=== PATIENT | male | born 1930 | race Caucasian/White ===

== ENCOUNTER 2018-04-08 15:41 | Emergency (ER) | payer MEDICARE ==
[~2018-04-08] VITALS: Ht 167.6 cm; Wt 72.6 kg
[~2018-04-08 15:41] MED LIST: CHLORTHALIDONE25 MG PO; CLONIDINE1 EAC1 TD; DIVALPROEX SOD500 MG PO; FINASTERIDE5 MG PO; LEVOTHYROXINE100 MCG PO; LIPITOR20 MG PO; LISINOPRIL10 MG PO; MAGNESIUM400 MG PO; MELATONIN3 M1 PO; METOPROLOL SUC200 MG PO; NORCO 5-325 TA1 EACH PO; VITAMIN C1000 M1 PO; VITAMIN E400 UNI1 PO
== END 2018-04-08 21:00 | disposition short-term general hospital (02) ==
LOC: ED 15:41
PROC: 0T9B70Z Drainage of Bladder with Drainage Device, Via Natural or Artificial Opening (ICD-10-PCS; principal; 2018-04-08)
DX: Z00.8 Encounter for other general examination (principal); I10 Essential (primary) hypertension; E03.9 Hypothyroidism, unspecified; Z79.899 Other long term (current) drug therapy
CPT/HCPCS: 36415; 51701; 80053; 80164; 80176; 81001; 82140; 84443; 85025; 96360; 96372; 99284; G0480; J3486; J7030

== ENCOUNTER 2019-08-04 12:16 | Emergency (ER) | payer MEDICARE, OTHER ==
[~2019-08-04] VITALS: Ht 167.6 cm; Wt 72.6 kg
== END 2019-08-11 13:45 | disposition home or self-care (01) ==
LOC: ED 12:16
DX: F31.9 Bipolar disorder, unspecified (principal); I10 Essential (primary) hypertension; E03.9 Hypothyroidism, unspecified; Z87.891 Personal history of nicotine dependence; Z79.899 Other long term (current) drug therapy
CPT/HCPCS: 80053; 80176; 81001; 84443; 85025; 99284; G0480

== ENCOUNTER 2020-07-23 01:08 | Inpatient (IN) | payer MEDICARE ==
[~2020-07-23] VITALS: Ht 167.6 cm; Wt 60.2 kg
--- NOTE | ~2020-07-23 | DS ---
[facility] [address] [place], [place] [address] Draft ADMISSION DATE: 07/23/2020 DISCHARGE DATE: 07/25/2020 REASON FOR ADMISSION: This 89-year-old white man lives at "[facility]" [facility] locally. 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 Estrada with lower abdominal pain, persistent nausea and vomiting. A CT scan was performed, which showed a small bowel obstruction and possible closed-loop obstruction. The patient had undergone open appendectomy at age 13 a number of years ago. He was admitted for further evaluation and care. PERTINENT PHYSICAL EXAMINATION: GENERAL: Showed a relatively thin white man, who was not in severe distress. CHEST: Clear. HEART: Regular without murmur. ABDOMEN: Nondistended, mildly tender in the mid abdomen. A nasogastric tube was draining enteric fluid. LABORATORY STUDIES: Showed a white count of 12.9, hematocrit 39.5. Chem profile is normal. The creatinine was elevated at 1.83. Urinalysis normal. COVID testing was performed, which was negative ultimately. HOSPITAL COURSE: He was fluid resuscitated, given broad-spectrum antibiotics and taken to operation for laparoscopy. The laparoscopy was found to have distended and markedly inflamed bowel loops consistent with bowel obstruction. It was not possible to fully identify the source of the obstruction itself and on that basis conversion to a mini-laparotomy using a circumumbilical incision. Laparoscopy did allow for general visualization of his rectal process to be in the right mid abdomen. With the ultra small mini-laparotomy, the obstructed area could be identified. It appeared to be an adhesion from prior appendectomy in his youth. The adhesion was divided and a closed-loop obstruction was relieved completely. The small bowel was explanted from the abdomen entirely showing it completely free of other problems. The inflammatory process appeared to zafar simply with relief of the obstructive band. The abdomen was copiously irrigated with saline solution and closed. Postoperatively, his nasogastric tube was removed within an hour or 2 of operation. He was begun on clear liquid diet, which he tolerated. He was advanced to regular diet, PATIENT NAME: RENEE JONES DISCHARGE SUMMARY DATE OF : 32 REPORT #: [id number] PHYSICIAN: STEPHANIE AGGARWAL MD PCP: VOLODYMYR MYLES MD REPORT IS CONFIDENTIAL AND NOT TO BE RELEASED WITHOUT AUTHORIZATION [facility] [address] [place] [id number] Draft which he ultimately tolerated well. He is discharged home in good condition having no problems currently. MEDICATIONS: Include: 1. Ibuprofen 600 mg p.o. q.6 hours as needed for pain, #30, refill 1. 2. Tylenol 1000 mg p.o. q.6 hours p.r.n. pain, #60. He will resume his usual medication includin. Finasteride 5 mg p.o. daily. 2. Synthroid 100 mcg p.o. daily. 3. Atorvastatin 20 mg p.o. daily. 4. Amlodipine 10 mg p.o. daily. 5. Vitamin B complex one p.o. daily. 6. Coenzyme Q 100 mg p.o. daily. 7. DSS 100 mg p.o. b.i.d. 8. Ferrous gluconate one tablet p.o. daily. 9. Lasix 40 mg p.o. daily. 10. Pantoprazole 40 mg p.o. daily. 11. MiraLAX 1 package daily as needed. FOLLOWUP PLANS: He will return to see me in approximately 4 weeks. He will return to the ongoing care of "[facility]." DISCHARGE DIAGNOSES: 1. Incomplete bowel obstruction related to closed-loop obstruction from adhesion from prior open appendectomy at age 13. 2. Laparoscopy and laparoscopic assisted adhesiolysis of obstructing band causing bowel obstruction July 23, 2020. 3. Hypertension. 4. Dyslipidemia. 5. Hypothyroidism. 6. Clinical reflux symptoms. Stephanie Aggarwal MD /MODL /[id number] PATIENT NAME: RENEE JONES DISCHARGE SUMMARY DATE OF : 32 REPORT #: [id number] PHYSICIAN: STEPHANIE AGGARWAL MD PCP: VOLODYMYR MYLES MD REPORT IS CONFIDENTIAL AND NOT TO BE RELEASED WITHOUT AUTHORIZATION [facility] [address] [place], [place] [address] Draft cc: Volodymyr Myles MD [facility] Copies: VOLODYMYR MYLES MD ~ PATIENT NAME: ROBERTRENEE DISCHARGE SUMMARY DATE OF : 32 REPORT #: [id number] PHYSICIAN: STEPHANIE AGGARWAL MD PCP: VOLODYMYR MYLES MD REPORT IS CONFIDENTIAL AND NOT TO BE RELEASED WITHOUT AUTHORIZATION
--- OUTSIDE RECORDS SUMMARY | 2020-07-23 01:10 | XMS ---
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 E.Amira VISIT COUNT (12 MO.) 8 [facility] 2 ARACELY Dominguez TOTAL 10 NOTE: Visits indicate total known visits. ED/UCC VISIT TRACKING (12 MO.) 07/23/2020 01:09 [facility] TYPE: Emergency COMPLAINT: - ABDOMINAL PAIN/CONSTIPATION 05/16/2020 20:46 [facility] [place] TYPE: Emergency DIAGNOSES: - weakness - Acute kidney failure, unspecified - Manic episode, unspecified - Weakness - Dehydration - Cellulitis of left lower limb - Bipolar disorder, unspecified - Restlessness and agitation - Chronic kidney disease, stage 4 (severe) 05/16/2020 02:23 [facility] [place] TYPE: Emergency DIAGNOSES: - Restlessness and agitation - Fall - Fall on same level from slipping, tripping and stumbling without subsequent striking against object, initial encounter - Agitation [facility] DIAGNOSES: - Unspecified dementia with behavioral disturbance - Encounter for general adult medical examination without abnormal findings - Mental Health Evaluation 10[facility]2019 12[facility] DIAGNOSES: - Chronic kidney disease, stage 2 (mild) - Metabolic encephalopathy - Epididymo-orchitis - Sepsis, unspecified organism - Leg Swelling - Altered Mental Status - Cardiac arrhythmia, unspecified - Groin Swelling 09[facility]24/2019 12[facility]41 [facility] DIAGNOSES: - Altered mental status, unspecified - Altered Mental Status - Encephalopathy, unspecified - Delirium due to known physiological condition [facility] DIAGNOSES: - Cellulitis of unspecified part of limb - Venous insufficiency (chronic) (peripheral) - Leg Swelling 08/23/2019 11:26 [facility] [place] TYPE: Emergency DIAGNOSES: - Problem related to unspecified psychosocial circumstances - Patient's other noncompliance with medication regimen - Leg Swelling - Localized edema 08/13/2019 17:01 [facility] [place] TYPE: Emergency DIAGNOSES: - Hip Pain - Fall on same level from slipping, tripping and stumbling without subsequent striking against object, initial encounter - Strain of muscle, fascia and tendon of right hip, initial encounter 08/04/2019 12:17 [facility] [place] TYPE: Emergency COMPLAINT: - MEDICAL CLEARANCE DIAGNOSES: - Personal history of nicotine dependence - Bipolar disorder, unspecified - Essential (primary) hypertension - Hypothyroidism, unspecified - Other usp (current) drug therapy - Restlessness and agitation INPATIENT VISIT TRACKING (12 MO.) 05/16/2020 20:46 [facility] DIAGNOSES: - Cellulitis of unspecified part of limb - Altered mental status, unspecified - Restlessness and agitation - Chronic kidney disease, stage 4 (severe) - Acute kidney failure, unspecified - Manic episode, unspecified - Bipolar disorder, unspecified - Vascular dementia without behavioral disturbance - Dehydration - Weakness 10/09/2019 12:37 [facility] DIAGNOSES: - Epididymo-orchitis - Sepsis, unspecified organism - Chronic kidney disease, stage 2 (mild) - Acute on chronic diastolic (congestive) heart failure - Metabolic encephalopathy - Cardiac arrhythmia, unspecified 09/24/2019 12:41 [facility] Services DIAGNOSES: - Metabolic encephalopathy - Delirium due to known physiological condition - Unspecified convulsions - Altered mental status, unspecified - Chronic kidney disease, stage 3 (moderate) - Hypertensive encephalopathy - Encephalopathy, unspecified [email or web address]
[2020-07-23] MEDS ORDERED: AMLODIPINE BESY10 MG PO (01:37)
[2020-07-23] MEDS ORDERED: B COMPLEX1 EACH PO (01:37)
[2020-07-23] MEDS ORDERED: COENZYME Q10100 MG PO (01:37)
[2020-07-23] MEDS ORDERED: DOCUSATE SODIU100 MG PO (01:38)
[2020-07-23] MEDS ORDERED: FERROUS GLUCON240 MG PO (01:39)
[2020-07-23] MEDS ORDERED: FINASTERIDE5 MG PO (01:40)
[2020-07-23] MEDS ORDERED: FUROSEMIDE40 MG PO (01:41)
[2020-07-23] MEDS ORDERED: PROTONIX40 M1 PO (01:41)
[2020-07-23] MEDS ORDERED: MIRALAX17 GM PO (01:42)
--- NOTE | 2020-07-23 05:30 | NUR ---
pt arrived to the floor via ed stretcher, 3pa to hospital bed. pt [place], but appears a/o. ng tube to ilws, output brown in color. cpox in place, o2 sat 89% on ra, 1lnc placed, maintaining o2 sats in low to mid 90's. iv site flushes well, saline locked. pt oriented to room, call light in reach. no additional needs at this time.
--- NOTE | 2020-07-23 05:47 | NUR ---
PT ARRIVED ON FLOOR FROM ED, XFER PT ONTO MEDR BED, TOOK VITALS FOR RN, ASST RN WITH PT SETUP, NO FURTHER REQUESTS AT THIS TIME
--- NOTE | 2020-07-23 06:39 | NUR ---
IV FLUIDS INFUSING PER MD ORDERS, SITE WNL.
--- NOTE | 2020-07-23 08:52 | NUR ---
IN TO SEE PATIENT, PT REPORTS SOME [place] SO PRN IV ZOFRAN ADMINISTERED. ASSESSMENT COMPLETED CALL LIGHT AND H2O IN REACH. PT'S NG TUBE SET TO LIWS. PT DENIES FURTHER NEEDS OR CONCERNS.
--- NOTE | 2020-07-23 10:17 | NUR ---
PATIENT AWAKE IN BED, NG IN PLACE. VITALS AND I&OS CHARTED. CALL LIGHT IN REACH, NO OTHER NEEDS AT THIS TIME
--- NOTE | 2020-07-23 11:00 | NUR ---
MOVEMENT EDUCATION SPECIALIST to bedside, report given, LR on straight tubing and Ancef iv sent with MOVEMENT EDUCATION SPECIALIST with patient in bed. Pt alert and oriented all questions answered consent also provided to motor installer.
--- NOTE | 2020-07-23 12:36 | NUR ---
07/23/20 Sergei Ha O2 WEANED TO 7L BLOW BY. SPO2 REMAINS 100%. COMPLAINS OF UNRATED PAIN. MEDICATED PER EMAR
--- NOTE | 2020-07-23 13:10 | NUR ---
PT BACK TO ROOM 119 VIA HOSPITAL BED. PT LAERT AND ORIENTED BUT SLEEPY. BEDSIDE REPORT RECEIVED FROM INSTRUMENT REPAIRER. PT REMAINS ON 2LPNC AND NG TO LIWS. ASSESSMENT COMPLETED. PT DENIES SOB, NAUSEA OR PAIN. CALL LIGHT AND H2O IN REACH. PT DENIES NEEDS OR CONCERNS.
--- NOTE | 2020-07-23 15:10 | NUR ---
PT RESTING IN SEMIFOWLERS POSITION IN BED ALERT AND ORIENTED STATES "NOW WHEN DO I GET TO HAVE THIS DARN THING TAKEN OUT OF MY NOSE?". NG TUBE REMOVED AT THIS TIME PER PT JANEL AND MD'S INSTRUCTION PER NURSE NOTIFY NOTE. PT DENIES PAIN, NAUSEA OR SOB. CALL LIGHT AND H2O IN REACH.
--- NOTE | 2020-07-23 18:52 | NUR ---
PT HAS HAD NGT TUBE OUT ADN NOW STARTING TO EAT SMALL AMOUNTS OF ICE CHIPS. PT REPORTS SOME PAIN TO ABD BUT DECLINES PAIN MEDICATION. PT REMAINS INCONTINANT OF URINE AND STOOL. SURGICAL INCISION TO MID UPPER ABD HAD SMALL AMOUNT OF SEROUS DRAINAGE SO WAS REENFORCED WITH ABD PAD. LOWER MID ABD INC REMAINS CDI. NO NAUSEA THIS AFTERNOON. O2 REMAINS IN MID 90'S ON 1.5LPNC.
--- NOTE | 2020-07-23 19:09 | NUR ---
PATIENT RESTNIG WITH EYES CLOSED, WOKE TO VOICE. VITALS AND I&OS CHARTED. BRIEF DRY. 2PA WITH RN-PATIENT STOOD AT SIDE OF BED TO USE URINAL, VERY LITTLE OUTPUT. PATIENT VERY AWARE OF PAIN, BUT DOESN'T APPEAR BOTHERED BY IT, RN REMINDING HIM TO STAY ON TOP OF PAIN, PATIENT APPEARS VERY [place], OR MAYBE A BIT DELAYED IN UNDERSTANDING.VERY PLEASANT. ICE CHIPS PROVIDED, CALL LIGHT IN REACH
--- NOTE | 2020-07-23 19:10 | NUR ---
SHIFT REPORT RECIEVED. PT LYING IN BED. MIDLINE DRESSING INTACT. LAP SITE ABOVE MIDLINE WITH STERI STRIPS PER SHIFT REPORT. REINFORCED WITH ABD PAD ON DAY SHIFT. ABD CDI. 2L NC, 92% O2 SAT,HR 91, 85ML/HR LR INFUSING. CALL LIGHT WITHIN REACH. NO FURTHER CONCERNS AT THIS TIME.
--- NOTE | 2020-07-23 19:48 | EKG ---
[facility] [address] [place] [address] Signed Normal sinus rhythm Inferior infarct , age undetermined Abnormal ECG No previous ECGs available Confirmed by EDMUND ROPER MD ([id number]) on 07/23/2020 7:48:35 PM Electronically Signed By: EDMUND ROPER MD 07/23/201947 PATIENT NAME: RENEE JONES Electrocardiogram DATE OF : 32 PHYSICIAN: EDMUND ROPER MD REPORT #: [id number] REPORT IS CONFIDENTIAL AND NOT TO BE RELEASED WITHOUT AUTHORIZATION
--- NOTE | 2020-07-23 21:10 | NUR ---
IN RM WITH RN TO TAKE VITALS AND I&Os, NO FURTHER REQUEST AT THIS TIME
--- NOTE | 2020-07-23 21:11 | NUR ---
ROUNDED CHARGE. PRIMARY RNS IN ROOM. ROOM TIDIED, URINAL AND TOILETRY SUPPLIES MOVED TO RESTROOM.
--- NOTE | 2020-07-23 21:34 | NUR ---
PT LYING IN BED, ORIENTED X3. DENIES HAVING PAIN, REPORTS MILD NAUSEA . DENIES NEED FOR NAUSEA MEDICATION. ASSESSMENT AND I AND O'S DONE. SCHEDULED MEDS GIVEN.VS STABLE. MIDLINE DRESSING INTACT SCANT SEROSANGUINEOUS SHADOWING NOTED. LAP SITE WITH STERI STRIPS INTACT. HR UP TO 120 WHILE STANDING TO VOID. RETURNED TO BASELINE QUICKLY AFTER RETURNING TO BED. CALL LIGHT WITHIN REACH, BED ALARM ON AND NO FURTHER NEEDS.
--- NOTE | 2020-07-24 01:29 | NUR ---
PT LYING IN BED. NEW IV BAG OF FLUIDS HUNG. ASSESSMENT COMPLETE AND VS STABLE. PT WAS ASSISTED WITH A URINAL. INCONTX1 AND 25ML UO. STERI STRIPS INTACT TO INCISION ABOVE MIDLINE. NO NEW SHADOWING TO MIDLINE. DENIES PAIN. CALL LIGHT IN REACH, BED ALARM ON. NO FURTHER NEEDS AT THIS TIME.
--- NOTE | 2020-07-24 04:10 | NUR ---
PT RESTING QUIETLY IN BED WITH EYES CLOSED. RR EVEN AND UNLABORED, CPOX IN PLACE WITH 1LNC. O2 SAT AND HR WNL. IV FLUIDS INFUSING AND CALL LIGHT IN REACH. BED ALARM REMAINS ON.
--- NOTE | 2020-07-24 05:31 | NUR ---
PT HAD AN UNEVENTFUL NIGHT, SLEPT FOR MOST OF THE SHIFT. VSS, 1LNC IN PLACE, CPOX IN ROOM. BED ALARM ON FOR SAFETY. 1-2PA TO STAND, WC AT BASELINE. DENIED PAIN, MILD NAUSEA REPORTED. DENIED NEED FOR NAUSEA MEDICATION. CLEAR LIQUID DIET, TOELRATING ICE CHIPS WELL. INCONTINENT WHEN STANDING, NO BM THIS SHIFT. IV FLUIDS INFUSING, SITE WNL.
--- NOTE | 2020-07-24 06:32 | NUR ---
Pt lying in bed. Eyes closed. VS stable. CPOX in place 95% o2 sat, with 1L NC. Assisted pt with urinal. Incont x1. Dressing unchanged, no known new shadowing. Call light within reach. No further concerns or needs.
--- NOTE | 2020-07-24 07:30 | NUR ---
PATIENT RESTING IN BED. WHITE BOARD UPDATED. PATIENT'S HANDS AND FACE WASHED. DENTURES CARE DONE. CALL LIGHT WITHIN REACH. NO OTHER NEEDS AT THIS TIME
--- NOTE | 2020-07-24 07:41 | NUR ---
BEDSIDE REPORT...PT ALERT HARD OF HEARING, VERBALIZES APPROPRIATE, HE VERBALIZED CONCERN ABOUT NOT GETTING ENOUGH WATER, PT REMINDED HE HAS ICE AND WATER AT BEDSIDE. PT DOES NOT REPORT ANY PAIN OR NAUSEA RELATED TO SURGERY HE REPORTS SOME MILD BACK PAIN.
--- NOTE | 2020-07-24 08:21 | NUR ---
pt up to recliner two person standby pt tolerated activity well, he reported a mild increase in pain at abd, improved with rest. clear liquid tray set up for pt breakfast.
--- NOTE | 2020-07-24 08:30 | NUR ---
PATIENT SITTING UP IN CHAIR. PATIENT WAS ASKED ABOUT TO TAKE A SHOWER TODAY. PATIENT SAID HE WOULD LIKE TO TAKE A SHOWER TOMORROW
--- NOTE | 2020-07-24 09:24 | NUR ---
PATIENT SITTING UP IN CHAIR. VITAL SIGNS AND I&O DONE. CALL LIGHT WITHIN REACH. NO OTHER NEEDS AT THIS TIME
--- NOTE | 2020-07-24 10:57 | NUR ---
PT SITTING UP IN RECLINER EYES CLOSED RR EVEN NO DISTRESS NOTICED, HE IS ON ROOM AIR OXYGEN SATURATION 92% PER BEDSIDE PULSE OXIMETRY AT THIS TIME.
--- NOTE | 2020-07-24 12:36 | NUR ---
PT SITTING UP IN RECLINER ENJOYING MASKED POTATOES/GRAVY, AND CREAM OF CHICKEN SOUP AND ENSURE MILK SHAKE. PT HAS NO COMPLIANT OF PAIN OR NAUSEA AT THIS TIME.
--- NOTE | 2020-07-24 12:40 | NUR ---
Spoke with Steve. He is very hard of hearing. History is difficult to follow. Makes statements he is getting , lived in a mental hospital for 20 years, does not think he lives at [facility]. Pt also says he is a from [place]. Will look into this.
--- NOTE | 2020-07-24 13:54 | NUR ---
PATIENT SITTING UP IN CHAIR. VITAL SIGNS AND I&O DONE. PATIENT INCONTINENT OF URINE. PERICARE PERFORMED. TWO PERSON ASSISTING. CALL LIGHT WITHIN REACH. NO OTHER NEEDS AT THIS TIME
--- NOTE | 2020-07-24 14:25 | NUR ---
PATIENT SITTING UP IN CHAIR. PATIENT WAS ASKED AGAIN IF HE WANTED TO TAKE A SHOWER TODAY AND HE AGAIN REFUSED AND CONFIRMED THAT HE WANTS TO TAKE A SHOWER TOMORROW. RN NOTIFIED
--- NOTE | 2020-07-24 15:17 | OR ---
[facility] [address] [place], [place] [address] Signed DATE OF OPERATION: 07/23/2020 SURGEON: Stephanie Aggarwal MD PREOPERATIVE DIAGNOSES: 1. Small bowel obstruction, possible closed loop obstruction. 2. History of open appendectomy, age 13. POSTOPERATIVE DIAGNOSIS: Closed loop obstruction of small bowel, secondary to adhesive band right lower abdomen. PROCEDURES: Laparoscopy with conversion to a mini-laparotomy with lysis of adhesive band for relief of small-bowel obstruction. ANESTHESIA: General endotracheal; Pk Hawkins CRNA and local 10 mL of 0.25% Marcaine with epinephrine. 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 Vasquez with lower abdominal pain, persistent nausea and vomiting. A CT scan was performed, which showed a small-bowel obstruction and possible closed-loop obstruction. The patient did undergo open appendectomy at age 13, a number of years ago. He has been fluid resuscitated given intravenous antibiotics, parenteral pain medication, and nasogastric tube decompression, and has been recommended to undergo laparoscopy with possible relief of obstruction; by that approach, possible laparotomy depending on findings. The risks of bleeding, infection, need for open procedure and other unforeseen complications including possible need for bowel resection were all reviewed with him. He understands and wished to proceed. FINDINGS: On laparoscopy, he was found to have markedly inflamed small bowel segments. Dilated loops of bowel with air precluded good identification of the actual obstructive site to allow for relief of the obstruction, however, he certainly did have a finding of the obstruction apparently in the right lower abdomen, not likely far from prior appendectomy scar. On the basis of localization with laparoscopy, a mini-laparotomy centered around the umbilicus allowed for intraabdominal examination withdrawal of bowel loops and identification of an adhesive band, which indeed was causing a closed-loop obstruction. This was divided in the small bowel fully examined and relieved of the Electronically Signed By: STEPHANIE AGGARWAL MD 07/24/20 1517 PATIENT NAME: RENEE JONES OPERATIVE REPORT DATE OF : 32 REPORT #: [id number] PHYSICIAN: STEPHANIE AGGARWAL MD PCP: VOLODYMYR MYLES MD REPORT IS CONFIDENTIAL AND NOT TO BE RELEASED WITHOUT AUTHORIZATION [facility] [address] [place] [id number] Signed obstructive process. There were no complications. DESCRIPTION OF PROCEDURE: The patient was brought to the operating room, given a general endotracheal anesthetic. Preoperative antibiotic Ancef was given. Sequential compression device stockings used and heparin subcutaneously administered. A Monroe catheter was placed by myself. The abdomen was clipped and prepared with a chlorhexidine solution and draped sterilely. An infraumbilical incision was made and using an open Jorge cannula technique, pneumoperitoneum was attempted to a level of 14 mmHg of carbon dioxide gas. Intraabdominal inspection showed dilated loops of small bowel with market inflammatory change in some of them. I did not see any decompressed bowel initially. The liver was senescence and normal otherwise. Various manipulations were undertaken after placement of an epigastric 10 mm port and replaced with the camera in that site. Small bowel loops could be manipulated, but due to the distention of the air within the small bowel loops. Full examination of the actual obstructive site could not be ascertained, but it did appear to be in the right lower abdomen. On that basis, the trocars were removed and a conversion to a mini-laparotomy undertaken extending the incision below and above the umbilicus. Due to his thin body habitus, small bowel loops could be withdrawn from the abdomen, identifying digitally in the area of complete obstruction in the right lower abdomen. Insinuation of the index finger beneath the adhesive band allowed for division with electrocautery and complete freeing of the bowel loops. The small bowel was then withdrawn entirely from the abdomen including the ileum and more proximal bowel. The area of obstruction was quite distinct and distal decompression of bowel was noted. The small bowel loops were returned to the abdominal cavity and irrigation undertaken with warm saline solution. Excess irrigation fluid was suctioned free. The copious amount of intraabdominal irrigation allowed bowel loops to float into a more natural configuration. The omentum was drawn over the abdominal contents at that point after suctioning the excess irrigation fluid. The midline fascia was reapproximated with running #1 PDS suture. Irrigation was undertaken. The skin was closed with running subcuticular 3-0 Vicryl in the epigastric port that was placed, was closed with interrupted 3-0 Vicryl as well. Steri-Strips were applied to the epigastric and periumbilical wound, and a silver sponge dressing applied as well. The patient was ultimately extubated and transferred to the recovery room in good condition and suffered no complication. Sponge, needle, and instruments counts were reported as correct x3. Stephanie Aggarwal MD Electronically Signed By: STEPHANIE AGGARWAL MD 07/24/20 1517 PATIENT NAME: RENEE JONES OPERATIVE REPORT DATE OF : 32 REPORT #: [id number] PHYSICIAN: STEPHANIE AGGARWAL MD PCP: VOLODYMYR MYLES MD REPORT IS CONFIDENTIAL AND NOT TO BE RELEASED WITHOUT AUTHORIZATION [facility] [address] [place] [address] Signed /RU /[id number] cc: MD Su Lal MD Copies: SIRENA VASQUEZ MD, MICHAELA MD ~ Electronically Signed By: STEPHANIE AGGARWAL MD 07/24/20 1517 PATIENT NAME: RENEE JONES OPERATIVE REPORT DATE OF : 32 REPORT #: [id number] PHYSICIAN: STEPHANIE AGGARWAL MD PCP: VOLODYMYR MYLES MD REPORT IS CONFIDENTIAL AND NOT TO BE RELEASED WITHOUT AUTHORIZATION
--- NOTE | 2020-07-24 16:48 | NUR ---
WE HAVE NOT ABLE TO ORDER THE PATIENT'S DINNER BECAUSE HE IS STILL SLEEPING IN THE RECLINER WITH HIS HEAD COVERED BY THE BLANKET.
--- NOTE | 2020-07-24 16:52 | NUR ---
PT SITTING UP OM RECLINER OVER SHIFT. HE HAS BEEN ADVANCED TO REGULAR DIET TOLERATING WELL. NO NAUSEA. NO REPORTS OF PAIN. PT DECLINED SHOWER TWICE TODAY SAYING HE WILL TAKE TOMORROW. HE HAS BEEN INCONTINENT IN DEPEND BRIEFS. SURGERY SITES NO COAL FEEDER OPERATOR SHIFT.
--- NOTE | 2020-07-24 17:26 | NUR ---
PATIENT ASLEEP IN BED. CALL LIGHT WITHIN REACH. NO FURTHER NEEDS AT THIS TIME
--- NOTE | 2020-07-24 17:32 | NUR ---
PATIENT RESTING IN BED. I&O And VITAL SIGNS DONE. PATIENT'S ATTENDS CHANGED. TWO PERSON ASSISTING. PATIENT'S DINNER ORDERED. CALL LIGHT WITHIN REACH. NO OTHER NEEDS AT THIS TIME
--- NOTE | 2020-07-24 19:32 | NUR ---
SHIFT REPORT FROM NURSE LEMUS. PT WAS LAYING IN BED WITH EYES CLOSED, EASILY AWOKEN. PT DENIES NEEDS AT THIS TIME. CALL LIGHT WITHIN REACH. BED ALARM ON
--- NOTE | 2020-07-24 21:20 | NUR ---
ROUNDED CHARGE. VSS. PRIMARY RN IN ROOM. 1PA TO PIVOT TO BSC FOR SMALL UNMEASURED DRIBBLE IN COMMODE, INCONTINENCE NOTED IN ATTENDS. TRAY TABLE CLEARED. pt COOPERATIVE AT THIS TIME. PRIMARY RN REMAINS IN ROOM.
--- NOTE | 2020-07-24 21:32 | NUR ---
IN ROOM FOR EVENING MEDS AND ASSESSMENT. PT REPORTS "PRESSURE" IN LOWER ABDOMEN. PT DOES NOT BELIEVE THIS IS GAS PAIN. PT DECLINES TYLENOL AT THIS TIME. BOWEL TONES ACTIVE. PT WAS UP TO COMMODE WITH 1PA; SMALL AMOUNT OF URINE, NO BM, NO GAS. VSS. PT ON RA WITH SPO2 92% INFUSION INFUSING PER ORDER. SURGICAL DRESSINGS ARE CDI WITH JUST SCANT DRIED BLOOD. BED ALARM ON. PT ENCOURAGED TO USE CALL LIGHT. CALL LIGHT WITHIN REACH.
--- NOTE | 2020-07-24 23:33 | NUR ---
CHECKED ON PT. PT APPEARS TO BE SLEEPING, LAYING ON HIS BACK. EVEN, UNLABORED BREATHING, NO APPARENT SIGNS OF DISTRESS.
--- NOTE | 2020-07-25 00:42 | NUR ---
CHECKED ON PT. PT SLEEPING ON HIS BACK, EVEN UNLABORED BREATHING. PT HAS BEEN REPOSITIONING HIMSELF INDEPENDENTLY. NO APPARENT SIGNS OF DISTRESS.
--- NOTE | 2020-07-25 02:57 | NUR ---
IN ROOM TO HANG NEW IV FLUIDS BAG. PT SLEEPING; STIRS AT MOVEMENT IN ROOM. NO SIGNS OF DISTRESS, CALL LIGHT WITHIN REACH
--- NOTE | 2020-07-25 05:36 | NUR ---
PATIENT IS IN BED RESTING. JELO GIVEN TO EAT. CALL LIGHT IN REACH. NO OTHER NEEDS AT THIS TIME.
--- NOTE | 2020-07-25 07:29 | NUR ---
BEDSIDE REPORT PT RESTING IN BED ALERT SAID HE IS READY FOR BREAKFAST. HE REPORTS NO PAIN AT THIS TIME. ABD DRESSNIG INTACT.
--- NOTE | 2020-07-25 07:30 | NUR ---
PATIENT SLEEPING. WHITE BOARD UPDATED. CALL LIGHT WITHIN REACH. NO OTHER NEEDS AT THIS TIME
--- NOTE | 2020-07-25 07:57 | NUR ---
PT UP TO RECLINER FOR BREAKFAST. TOLERATED ACTIVITY WELL.
--- NOTE | 2020-07-25 08:05 | NUR ---
PATIENT SITTING UP IN CHAIR. PATIENT SAID MAYBE HE IS GOING TO TAKE A SHOWER AFTER BREAKFAST. SETS UP BATHROOM FOR SHOWER. CALL LIGHT WITHIN REACH. NO OTHER NEEDS AT THIS TIME
--- NOTE | 2020-07-25 09:28 | NUR ---
PT REPORTS NO PAIN AT THIS TIME, HE IS UP TO SHOWER WITH KIDNEY TRIMMER AT THIS TIME.
--- NOTE | 2020-07-25 09:43 | NUR ---
PT OUT OF THE SHOWER HE REPORTS PAIN MILD MOTRIN GIVEN PRN AT THIS TIME.
--- NOTE | 2020-07-25 09:51 | NUR ---
PATIENT SITTING UP IN CHAIR. VITAL SIGNS AND I&O DONE. CALL LIGHT WITHIN REACH. NO OTHER NEEDS AT THIS TIME
--- NOTE | 2020-07-25 09:52 | NUR ---
PATIENT WAS ASSISTED WITH HIS SHOWER BY THE TWAN YI.
--- NOTE | 2020-07-25 09:55 | NUR ---
PATIENT USED TWO PERSON ASSIST TO GET INTO SHOWER. FULL ASSIST WITH SHOWER. CLEAN LINEN AND SKIN CARE DONE. CALL LIGHT WITHIN REACH. NO FURTHER NEEDS AT THIS TIME.
[2020-07-25] MEDS ORDERED: IBUPROFEN600 MG PO (13:03)
[2020-07-25] MEDS ORDERED: ACETAMINOPHEN500 MG PO (13:03)
--- NOTE | 2020-07-25 13:30 | NUR ---
Notified by JANIS Webster, orders were completed by Dr. Zelaya and they faxed to [facility]. DC notes, progress notes, surgery report faxed to Rosey at [facility]. Notfied Rosey she will get two separate faxes.
[2020-07-25] MEDS ORDERED: VITAMIN C1000 MG PO (14:06)
--- NOTE | 2020-07-25 14:22 | NUR ---
PATIENT RESTING IN BED. PATIENT ASSISTED WITH HIS CLOTHES. TWO PERSON ASSISTING. VITAL SIGNS AND I&O DONE. CALL LIGHT WITHIN REACH. NO OTHER NEEDS AT THIS TIME
--- NOTE | 2020-07-25 14:28 | NUR ---
CALLED REPORT TO LES AT [facility]. NO FURTHER QUESTIONS OR CONCERNS. LES SAID HE CAN BE DISCHARGED BACK TO FACILITY ANYTIME.
--- NOTE | 2020-07-25 14:30 | NUR ---
DISCHARGE EDUCATION PROVIDED WITH PACKET TO PT ON ACTIVITY RESTRICTIONS, MEDICATIONS, SIGNS AND SYMTPOMS TO SEEK EMERGENT MEDCIAL ASSISTANCE, EXCESS BLEEDING, SEPARATION OF INCISION, UNCONTROLLED PAIN.
--- NOTE | 2020-07-25 14:39 | NUR ---
Notified by Polly, fax did not go with orders. Called and spoke with Rosey, she has not received either of our faxes, all refaxed.
== END 2020-07-25 14:30 | disposition home or self-care (01) | DRG 337 ==
LOC: ED 01:08 → MS 05:00
PROVIDERS: ADMIT Surgery; ATTEND Surgery
PROC: 0DJD4ZZ Inspection of Lower Intestinal Tract, Percutaneous Endoscopic Approach (ICD-10-PCS; principal; 2020-07-23 10:44)
PROC: 0DN80ZZ Release Small Intestine, Open Approach (ICD-10-PCS; 2020-07-23 10:44)
DX: K56.51 Intestinal adhesions [bands], with partial obstruction (principal); Z20.828 Contact with and (suspected) exposure to other viral communicable diseases; E78.5 Hyperlipidemia, unspecified; I10 Essential (primary) hypertension; E03.9 Hypothyroidism, unspecified; F31.9 Bipolar disorder, unspecified; K21.9 Gastro-esophageal reflux disease without esophagitis; Z53.31 Laparoscopic surgical procedure converted to open procedure; Z79.899 Other long term (current) drug therapy
CPT/HCPCS: 00790; 51798; 74018; 74176; 74177; 81001; 93005; 93010; 94762; 96361; 96374; 96375; 99285-25; A9270; J0131; J0330; J0690; J1100; J1170; J1644; J1885; J2405; J2550; J2704; J3010; J3475; J3480; J7040; J7121